=== PATIENT | male | born 1990 | race Two or more races ===

== ENCOUNTER 2017-02-13 01:23 | Emergency (ER) | payer OTHER ==
[2017-02-13 01:29] VITALS: BP 147/88; PULSE 63; RESP 16; TEMP 98.4; O2SAT 100
--- NOTE | 2017-02-13 01:44 | EDPHY ---
H & P Stated Complaint: Laceration to the right eye Time Seen by Provider: 02/13/17 01:35 HPI/ROS: CHIEF COMPLAINT: Laceration HISTORY OF PRESENT ILLNESS: The patient is a 26-year-old healthy man who tripped and fell this evening. He was wearing glasses. He hit his face on the ground. The glasses did not break. He has a laceration to his right lateral eyebrow and an abrasion below his right eye. No vision changes. No headache. No neck pain. He denies other injuries. REVIEW OF SYSTEMS: Constitutional: denies: chills, fever, recent illness, recent injury EENTM: denies: blurred vision, double vision, nose congestion Respiratory: denies: cough, shortness of breath Cardiac: denies: chest pain, irregular heart rate, lightheadedness, palpitations Gastrointestinal/Abdominal: denies: abdominal pain, diarrhea, nausea, vomiting, blood streaked stools Genitourinary: denies: dysuria, frequency, hematuria, pain Musculoskeletal: denies: joint pain, muscle pain Skin: See HPI Neurological: denies: headache, numbness, paresthesia, tingling, dizziness, weakness Hematologic/Lymphatic: denies: blood clots, easy bleeding, easy bruising Immunologic/allergic: denies: HIV/AIDS, transplant EXAM: GENERAL: Well-appearing, well-nourished and in no acute distress. HEAD: Atraumatic, normocephalic. EYES: Pupils equal round and reactive to light, extraocular movements intact, sclera anicteric, conjunctiva are normal. No bony tenderness ENT: TMs normal, nares patent, oropharynx clear without exudates. Moist mucous membranes. NECK: Normal range of motion, supple without lymphadenopathy or JVD. LUNGS: Breath sounds clear to auscultation bilaterally and equal. No wheezes rales or rhonchi. HEART: Regular rate and rhythm without murmurs, rubs or gallops. ABDOMEN: Soft, nontender, normoactive bowel sounds. No guarding, no rebound. No masses appreciated. BACK: No CVA tenderness, no spinal tenderness, step-offs or deformities EXTREMITIES: Normal range of motion, no pitting or edema. No clubbing or cyanosis. NEUROLOGICAL: Cranial nerves II through XII grossly intact. Normal speech, normal gait. 5/5 strength, normal movement in all extremities, normal sensation PSYCH: Normal mood, normal affect. SKIN: 1.5 cm laceration to lateral right eyebrow. Abrasion below right eye. Source: Patient Exam Limitations: No limitations - Personal History Current Tetanus/Diphtheria Vaccine: Yes Current Tetanus Diphtheria and Acellular Pertussis (TDAP): Yes - Medical/Surgical History Hx Asthma: No Hx Chronic Respiratory Disease: No Hx Diabetes: No Hx Cardiac Disease: No Hx Renal Disease: No Hx Cirrhosis: No Hx Alcoholism: No Hx HIV/AIDS: No Hx Splenectomy or Spleen Trauma: No - Family History Significant Family History: No pertinent family hx - Social History Smoking Status: Never smoked Alcohol Use: Sober Drug Use: None Constitutional: Initial Vital Signs Temperature (C) 36.9 C 02/13/17 01:28 Heart Rate 63 02/13/17 01:28 Respiratory Rate 16 02/13/17 01:28 Blood Pressure 147/88 H 02/13/17 01:28 O2 Sat (%) 100 02/13/17 01:28 O2 Delivery Mode Room Air Allergies/Adverse Reactions: No Known Allergies Allergy (Unverified 02/13/17 01:27) Home Medications: Medication Instructions Recorded NK [No Known Home Meds] 02/13/17 Medical Decision Making Procedures: Procedure: Laceration repair. Verbal consent was obtained from the patient. The 1.5 cm right eyebrow laceration was anesthetized with 0.5 bupivacaine locally infiltrated. The wound was irrigated copiously according to protocol, draped and explored to its base. It was approximately 1/2 cm deep. There were no deep structures involved. No tendon, nerve, or vascular injury was identified when explored through full range of motion. No foreign body was identified. The wound was repaired with 6.0 fast-absorbing gut, 3 sutures, interrupted. The wound repair was simple without wound margin revisement or multiple flap alignment. The procedure was performed by myself. A dressing was then placed with sterile gauze. ED Course/Re-evaluation: The patient tolerated wound repair. We discussed suture care. We discussed indications for returning to the emergency department. Differential Diagnosis: Partial list of the Differential diagnosis considered include but were not limited to; laceration, abrasion and although unlikely based on the history and physical exam, I also considered fracture, eye injury, assault. I discussed these differential diagnoses and the plan with the patient as well as the usual and expected course. The patient understands that the diagnosis is provisional and that in medicine we are not always correct and that further workup is often warranted. Usual and customary warnings were given. All of the patient's questions were answered. The patient was instructed to return to the emergency department should the symptoms at all worsen or return, otherwise to followup with the physician as we discussed. Departure - Departure Disposition: Home, Routine, Self-Care Clinical Impression: Laceration Condition: Good Instructions: Laceration (ED), Care For Your Absorbable Stitches (ED) Additional Instructions: If your stitches do not dissolve in 5 days return to have them removed. Referrals: Corrina Bolaños MD [Medical Doctor] - As per Instructions
== END 2017-02-13 02:35 | disposition home or self-care (01) ==
PROC: 0HQ1XZZ Repair Face Skin, External Approach (ICD-10-PCS; principal; 2017-02-13)
DX: S01.111A Laceration without foreign body of right eyelid and periocular area, initial encounter (principal); W01.110A Fall on same level from slipping, tripping and stumbling with subsequent striking against sharp glass, initial encounter; Y99.8 Other external cause status